=== PATIENT | female | born 1955 | race Caucasian/White ===

== ENCOUNTER 2019-02-23 05:19 | Inpatient (IN) ==
--- NOTE | 2019-02-06 14:39 | Anesthesiology Consultation ---
Date of Service February 06, 2019 Assessment & Plan (1) Encounter for pre-operative examination: - Awaiting review preop testing (labs, EKG, CXR). - Awaiting surgeon-ordered PCP preop evaluation scheduled 02/14 (Dr. Noel). - S/P recent right upper side tooth extraction- stitches noted on exam; per patient stitches will be removed on 02/09. Denies swelling/pain in the area. S/P abx/dexamethasone x 5 days (completed 01/30). Surgeon aware. Discussed with Dr. Solomon. Patient advised to contact PAT/surgeon if any issues s/p stitches removal. - LUE limb restriction s/p left breast mastectomy. Chart Review Chart Review: Patient seen in Pre Admission Testing Teaching & Discussion Pre-Anesthesia Teaching/Discussion Notes: Instructed NPO after midnight before surgery,except medications with 15 cc of water. Medication instructions provided according to the PAT guidelines. History Surgery Operation Date: 02/23/19 09:55 Proposed Procedures p Right Total Knee Arthroplasty - Vicente Griffiths Height/Weight Height: 5 ft 6 in Weight: 86.8 kg Allergies Allergy/AdvReac Type Severity Reaction Status Date / Time narcotics AdvReac nausea Uncoded 02/06/19 14:42 Medications Home Medications Medication Instructions Recorded Confirmed Last Taken celecoxib [Celebrex] 200 mg PO DAILY 01/27/19 01/27/19 Unknown cholecalciferol (vitamin D3) 400 unit PO BID 01/27/19 01/27/19 Unknown [Vitamin D3] cranberry 500 mg PO DAILY 01/27/19 01/27/19 Unknown dexamethasone 0.75 mg PO UD 01/27/19 01/27/19 Unknown lactobacillus combination no.4 3,000 mmu cells PO DAILY 01/27/19 01/27/19 Unknown [Probiotic] lysine [L-Lysine] 500 mg PO DAILY PRN 01/27/19 01/27/19 Unknown multivitamin 1 tab PO DAILY 01/27/19 01/27/19 Unknown omeprazole magnesium [Prilosec OTC] 20 mg PO DAILY PRN 01/27/19 01/27/19 Unknown Past Medical History Medical History Cancer left breast s/p left mastectomy (no chemo/XRT)- LUE limb restriction GERD (gastroesophageal reflux disease) controlled Obesity Osteoarthritis Spinal stenosis Temporomandibular joint disorder occasional clicking/no locking Exercise / Class Metabolic Activity II 4-5 Yardwork/Stairs/Walk up hill Past Family History Family History Father Family hx of colon cancer Past Surgical History Surgical History History of carpal tunnel release RT/LEFT History of cholecystectomy History of colonoscopy History of ear surgery LEFT X 2 History of hysterectomy History of laparoscopy History of left mastectomy WITH RECONSTRUCTION History of myringotomy History of tonsillectomy History of tooth extraction Status post transverse rectus abdominis muscle flap breast reconstruction LEFT BREAST Past Anesthesia History No Hx of Anesthesia Complications and No Family Hx of Anesthesia Complications History of PONV No Hx of PONV and No Hx of Motion Sickness Social History Smoking Status: Former smoker tobacco type: cigarettes Do You Dip or Chew Tobacco: No Smoking End Date: Quit 1985 Hx Alcohol Use: Yes Alcohol type: beer and wine alcohol intake frequency: holidays/special occasions only Hx Substance Use: No substance use type: does not use Review of Systems Reflux controlled. Patient denies chest pain, shortness of breath, dyspnea on exertion, cough, wheezing, palpitations. Physical Exam Vital Signs VITALS BP 112/78 P 80 TEMP 98.1 SP02 96%RA RESP 16 PHYSICAL Full neck and c-spine range of motion. Full TMJ range of motion. TMD 3 finger breaths Mallampati Score 3 Dentition: missing molars, upper front dental implants (recent right upper side tooth extraction- stitches noted on exam; per patient stitches will be removed on 02/09. Denies swelling/pain in the area. S/P abx/dexamethasone; surgeon aware) Lungs: clear throughout to auscultation Cardiac: regular rate and rhythm, no murmurs noted Spine: normal Carotid arteries: negative bruit Extremities: no edema
--- NOTE | 2019-02-06 14:51 | PAT Medication Instructions ---
Medication Instructions Date of Service February 06, 2019 Home Medications celecoxib [Celebrex] 200 mg PO DAILY cholecalciferol (vitamin D3) [Vitamin D3] 400 unit PO BID cranberry 500 mg PO DAILY etodolac 400 mg PO Q6H PRN lactobacillus combination no.4 [Probiotic] 3,000 mmu cells PO DAILY lysine [L-Lysine] 500 mg PO DAILY PRN multivitamin 1 tab PO DAILY omeprazole magnesium [Prilosec OTC] 20 mg PO DAILY PRN ASK your surgeon for instructions celecoxib [Celebrex] 200 mg PO DAILY STOP taking 2 weeks before surgery (or as soon as possible if surgery is within 2 weeks) cranberry 500 mg PO DAILY lysine [L-Lysine] 500 mg PO DAILY PRN DO NOT take the morning of surgery cholecalciferol (vitamin D3) [Vitamin D3] 400 unit PO BID lactobacillus combination no.4 [Probiotic] 3,000 mmu cells PO DAILY multivitamin 1 tab PO DAILY Take morning of surgery With a small sip of water, OTHERWISE NOTHING TO EAT OR DRINK AFTER MIDNIGHT: omeprazole magnesium [Prilosec OTC] 20 mg PO DAILY PRN (if needed) Take evening before surgery cholecalciferol (vitamin D3) [Vitamin D3] 400 unit PO BID omeprazole magnesium [Prilosec OTC] 20 mg PO DAILY PRN (if needed) Other Notes If you have any questions please call us at [phone] or [phone] or [phone] or [phone]
--- NOTE | 2019-02-06 15:37 | XRay Report ---
TWO VIEW CHEST CLINICAL HISTORY: Preoperative examination. FINDINGS: PA and lateral chest radiographs are obtained. No prior studies are available for compariso n at the time of dictation. The cardiomediastinal silhouette is unremarkable. There is mild elevati on of the right hemidiaphragm and bibasilar atelectasis. The lungs and pleural spaces are otherwise c lear. There is no pneumothorax. The skeletal structures are osteopenic. The bony thorax appears intac t. Surgical clips are noted in the left axilla and the left breast. There are also surgical clips in the upper abdomen. IMPRESSION: No active disease in the chest. Electronically signed by: Anuj Daniel M.D. 02/06/2019 3:36 PM
[2019-02-06 15:41] LABS: Basophils # (auto) 0.05 K/uL (0-0.2); Basophils % (auto) 0.7 %; Eosinophils # (auto) 0.16 K/uL (0-0.5); Eosinophils % (auto) 2.1 %; Hematocrit (blood only) 38.2 % (37-47); Hemoglobin 13.1 g/dL (12.0-16.0); Immature Granulocytes # (auto) 0.03 K/uL (0.00-0.02); Immature Granulocytes % (auto) 0.4 %; Lymphocytes % (auto) 44.2 %; Mean Corpuscular Hemoglobin 31.6 pg (25-34); Mean Corpuscular Hgb Conc 34.3 g/dL (32-36); Mean Corpuscular Volume 92.3 fL (80-100); Mean Platelet Volume 9.4 fL (7.4-10.4); Neutrophils # (auto) 3.32 K/uL (1.4-6.5); Neutrophils % (auto) 44.6 %; Platelet Count 289 K/uL (130-400); RDW Coefficient of Variation 12.2 % (11.5-14.5); RDW Standard Deviation 41.2 fL (36.4-46.3); Red Blood Count 4.14 M/uL (4.2-5.4); White Blood Count 7.46 K/uL (4.8-10.8)
[2019-02-06 15:53] LABS: Appearance Urine Clear (Clear); Bacteria Urine Automated Negative (Negative); Bilirubin Urine Negative (Negative); Blood Urine Negative (Negative); Color Urine Yellow; Epithelial Cell Urine Auto >30 /lpf (0-5); Glucose Urine UA Negative (Negative); Ketones Urine Trace (Negative); Leukocyte Esterase Urine 1+ (Negative); Nitrite Urine Negative (Negative); Protein Urine Negative (Negative); RBC Urine Automated 0-4 /hpf (0-4); Specific Gravity Urine 1.022 (1.000-1.030); Urobilinogen Urine Negative (Negative)
[2019-02-06 15:53] LABS: Albumin Level 3.6 gm/dl (3.4-5.0); BUN Creatinine Ratio 14.8 (10-20); Calcium 8.9 mg/dl (8.5-10.1); Creatinine Clr Calc Pharmacy 64.2 ml/min; Est GFR (Non-African American) 61.3; Potassium 4.4 mmol/L (3.5-5.1)
[2019-02-06 15:56] LABS: Albumin Globulin Ratio 1.1 (0.9-2); Bilirubin,Total 0.4 mg/dl (0.2-1); Globulin 3.2 gm/dl (2.5-4.0); Total Protein 6.8 gm/dl (6.4-8.2)
[2019-02-06 16:04] LABS: Partial Thromboplastin Ratio 0.8; Partial Thromboplastin Time 22.8 Seconds (21.0-31.0)
--- NOTE | 2019-02-21 13:31 | History & Physical Report ---
Date of Service February 21, 2019 Assessment & Plan (1) Degenerative joint disease of right knee: admit and undergo Right TKA History of Present Illness Chief Complaint: Right knee pain Primary Care Provider: Maykel hernandez female with complaints of right knee pain for years. has failed nsaids, injections andpt and now ready for TKA Allergies Allergy/AdvReac Type Severity Reaction Status Date / Time narcotics AdvReac nausea Uncoded 02/06/19 14:42 Home Medications Home Medications Medication Instructions Recorded Confirmed Type celecoxib [Celebrex] 200 mg PO DAILY 01/27/19 01/27/19 History cholecalciferol (vitamin D3) 400 unit PO BID 01/27/19 01/27/19 History [Vitamin D3] cranberry 500 mg PO DAILY 01/27/19 01/27/19 History dexamethasone 0.75 mg PO UD 01/27/19 01/27/19 History lactobacillus combination no.4 3,000 mmu cells PO DAILY 01/27/19 01/27/19 History [Probiotic] lysine [L-Lysine] 500 mg PO DAILY PRN 01/27/19 01/27/19 History multivitamin 1 tab PO DAILY 01/27/19 01/27/19 History omeprazole magnesium [Prilosec OTC] 20 mg PO DAILY PRN 01/27/19 01/27/19 History Past Med/Surg History Medical History Cancer left breast s/p left mastectomy (no chemo/XRT)- LUE limb restriction GERD (gastroesophageal reflux disease) controlled Obesity Osteoarthritis Spinal stenosis Temporomandibular joint disorder occasional clicking/no locking Surgical History History of carpal tunnel release RT/LEFT History of cholecystectomy History of colonoscopy History of ear surgery LEFT X 2 History of hysterectomy History of laparoscopy History of left mastectomy WITH RECONSTRUCTION History of myringotomy History of tonsillectomy History of tooth extraction Status post transverse rectus abdominis muscle flap breast reconstruction LEFT BREAST Family History Father Family hx of colon cancer Social History Preferred Language: Uzbek Communication Ability: Effective Electronics Commodity Manager Required: No Beliefs That Will Affect Care: None Current Living Situation: Spouse Other Information That Helps Us Care for You: No Feels Safe at Home: Yes Safety Concerns: Feels Safe At This Time Smoking Status: Former smoker Tobacco Type: cigarettes ; Do You Dip or Chew Tobacco: No ; Smoking End Date: Quit 1985 ; Second Hand Exposure: No ; Tobacco Cessation Education Requested by Patient: No Hx Alcohol Use: Yes Alcohol type: beer and wine Hx Substance Use: No Review of Systems All systems reviewed & are unremarkable except as noted in HPI & below Physical Exam Constitutional: WD/WN, vitals as above Neck: trachea midline, no thyromegaly Respiratory: normal respiratory effort, lungs clear to auscultation Cardiovascular: RRR, no murmur, no edema Gastrointestinal (Abdomen): normal bowel sounds, soft, nontender, no hepatosplenomegaly Musculoskeletal: Knee: + deformity, + limited ROM of knee and + knee ROM with crepitation
[2019-02-23] MEDS ORDERED: LR 60ML/HR IV SCH (06:00)
[2019-02-23] MEDS ORDERED: ROPIVACAINE 0.5% HCL/PF 150 MG, BUPIVACAINE 0.5% MPF 30 ML, EPINEPHrine 30MG/30ML (OR U... INSTIL SCH (06:00)
[2019-02-23] MEDS ORDERED: FAMOTIDINE 20 MG TAB PO SCH (06:00)
[2019-02-23] MEDS ORDERED: CeleBREX 200 MG CAP PO SCH (06:00)
[2019-02-23] MEDS ORDERED: TRANEXAMIC ACID 1,000 MG **IV Pre-op IV SCH (06:00)
[2019-02-23] MEDS ORDERED: METOCLOPRAMIDE HCL 10 MG TABLET PO SCH (06:00)
[2019-02-23] MEDS ORDERED: dexAMETHasone 4 MG TAB PO SCH (06:00)
[2019-02-23] MEDS ORDERED: ACETAMINOPHEN 500 MG TAB PO SCH (06:00)
[2019-02-23] MEDS ORDERED: CEFAZOLIN 2000MG 2,000 MG/15 ML SYR IV SCH (06:00)
[2019-02-23] MEDS ORDERED: LR 15ML/HR IV SCH (06:00)
[2019-02-23] MEDS ORDERED: LR 500ML BOLUS, THEN 15ML/HR IV SCH (06:00)
[2019-02-23] MEDS ORDERED: BUPIVACAINE 0.5 % 5 MG/1 ML PF 10ML VIAL ONE (06:24)
[2019-02-23] MEDS ORDERED: TRANEXAMIC ACID 1,000 MG **IV Intra-op IV SCH (06:30)
[2019-02-23] MEDS ORDERED: MIDAZOLAM HCL 1 MG/ML 2ML VIAL ONE ×2 (06:38→06:39)
[2019-02-23] MEDS ORDERED: BACITRACIN INJ 50,000 UNIT VIAL ONE (06:40)
[2019-02-23] MEDS ORDERED: ORTHO JOINT ANESTHETIC ONE (06:40)
--- NOTE | 2019-02-23 06:41 | History & Physical Bridge Note ---
Date of Service February 23, 2019 History & Physical Bridge Note I have examined the patient, reviewed the History & Physical and in the interval since the performance of the History & Physical I have noted the following changes of clinical significance: no changes noted
[2019-02-23] MEDS ORDERED: ePHEDrine sulfate 50 MG/ML AMP IV PRN (07:08)
[2019-02-23] MEDS ORDERED: fentaNYL citrate 100 MCG/2 ML VIAL IV PRN (07:08)
[2019-02-23] MEDS ORDERED: ONDANSETRON INJ 2 MG/ML 2 ML VIAL IV PRN ×2 (07:08→09:27)
[2019-02-23] MEDS ORDERED: ATROPINE SULFATE 0.1 MG/ML 10ML SYR IV PRN (07:08)
[2019-02-23] MEDS ORDERED: LIDOCAINE HCL 2% 2 ML VIAL/AMP(20MG/ML) INFIL ONE (07:29)
[2019-02-23] MEDS ORDERED: ONDANSETRON INJ 2 MG/ML 2 ML VIAL ONE (07:29)
[2019-02-23] MEDS ORDERED: PROPOFOL IV EMULSION 10 MG/ML 20 ML VIAL IV ONE (07:29)
[2019-02-23] MEDS ORDERED: ePHEDrine sulfate 50 MG/ML SYR ONE (08:00)
--- NOTE | 2019-02-23 08:00 | Post Operative Brief Note ---
Immediate Post Op Note v1 Date of Surgery February 23, 2019 Pre & Post Diagnosis Operation Date: 02/23/19 07:00 Pre-Op Diagnosis: Right Knee Osteoarthritis Post-Op Diagnosis: Right Knee Osteoarthritis I identified the patient and participated in the time-out.: Yes Procedure Operation Date: 02/23/19 07:00 Actual Procedures p Right Total Knee Arthroplasty(Right) - Vicente Griffiths Surgeon Vicente Griffiths Business Functional Analyst Brooks foreman pac Estimated Blood Loss 10 Findings Consistent with Post-Op Diagnosis Drains Hemovac Drain (10 slovak, dual lumen)
--- NOTE | 2019-02-23 08:02 | Operative Report ---
Post Operative Report Pre & Post Diagnosis Operation Date: 02/23/19 07:00 Pre-Op Diagnosis: Right Knee Osteoarthritis Post-Op Diagnosis: Right Knee Osteoarthritis I identified the patient and participated in the time-out.: Yes Procedure Operation Date: 02/23/19 07:00 Actual Procedures p Right Total Knee Arthroplasty(Right) - Vicente Griffiths Surgeon Vicente Griffiths Research Contracts Supervisor Brooks foreman pac Estimated Blood Loss 10 Findings Consistent with Post-Op Diagnosis Specimens none Complications none Disposition Disposition: Recovery Room Description of Procedure IMPLANTS USED: [employer]rera [employer]hew journey 2 knee size 5 cemented femoral component, size 4 tibial component, a size 13 PS insert and size 32 all polyethylene patella INDICATIONS: Mrs. Cook is a pleasant /female) who has unfortunately failed all forms of conservative measures. Therefore, they have decided to undergo elective surgical intervention. All risks and benefits of the surgery were discussed with the patient and the family in entirety. PROCEDURE: The patient was brought to the operating room and properly identified by myself, anesthesia, and staff. Patient was given a spinal anesthesia and placed on the operating table in the supine position. Tourniquets were applied to the right upper thigh. The leg was then prepped and draped in usual sterile fashion. We made a standard midline approach over the patella and dissected down through the subcutaneous tissue to identify the capsule and performed a medial capsulotomy with the patella everted and the knee flexed.The patient matched implant was then put onto the femur. The femur measured to be a size #5. This was then put into place. We made the appropriate cuts and then placed a retractor behind the proximal tibia to retract anteriorly. We then placed the patient matched knee implant on the tibia. It measured to be a size #4. A size #4 guide was then put in place. We used the tibial punch then put the trial components into place. We had very good range of motion, excellent stability, and excellent patella tracking. We removed the trial components and irrigated the wound. We impacted the components in place using antibiotic cement. All excess cement was removed. We then irrigated the wound once more. We closed the capsule with 0 PDS suture, deep dermis and 2-0 Vicryl, and finally the skin with yolanda. A sterile dressing was applied. The patient was taken to the recovery room in stable condition. Due to the complex nature of the procedure, the entire surgery was performed with the operational assistance of Brooks Nunez PA-C. The claims assistant was under direct supervision, was involved in the actual performance of all aspects of the surgical procedure including hemostasis, tissue retraction and incision, instrument management, patient positioning, and wound closure. I attest to the content of the Intraoperative Record and any orders documented therein. Any exceptions are noted below.
--- NOTE | 2019-02-23 09:07 | Anesthesiology Progress Note ---
Date of Service February 23, 2019 Anesthesia Post Procedure Vital Signs Vital Signs: Temp Pulse Pulse Resp BP Pulse Ox 02/23/19 09:05 74 18 106/60 98 02/23/19 08:55 97.9 F 68 18 101/66 96 02/23/19 08:45 71 18 105/66 98 02/23/19 08:35 71 18 93/59 L 99 02/23/19 08:27 98.1 F 76 18 102/65 100 02/23/19 05:46 97.5 F L 70 20 132/82 96 Transfer of Care Handoff Completed per policy Notes Mental Status: alert / awake / arousable and participated in evaluation Patient Amnestic to Procedure: Yes Nausea / Vomiting: adequately controlled Pain: adequately controlled Airway Patency, RR, SpO2: stable & adequate BP & HR: stable & adequate Hydration State: stable & adequate Neuraxial Anesthesia: was administered and sensory block is resolving Anesthetic Complications: no major complications apparent and Pt Satisfied with anesthetic care
[2019-02-23] MEDS ORDERED: ALUMINUM/MAGNESIUM SUSP 30 ML UDC PO PRN (09:27)
[2019-02-23] MEDS ORDERED: DiphenhydrAMINE HCL 50 MG/ML VIAL IV PRN (09:27)
[2019-02-23] MEDS ORDERED: MAGNESIUM HYDROXIDE SUSP 30 ML UDC PO PRN (09:27)
[2019-02-23] MEDS ORDERED: bisacodyL 10 MG SUPP PR PRN (09:27)
[2019-02-23] MEDS ORDERED: SODIUM CHLORIDE 0.9% 1000ML 1,000 ML IV SCH (09:27)
[2019-02-23] MEDS ORDERED: METOCLOPRAMIDE HCL INJ 5 MG/ML 2 ML VIAL IV PRN (09:27)
[2019-02-23] MEDS ORDERED: OXYCODONE HCL IR 5 MG TAB (IMMEDIATE RELEASE) PO PRN (09:27)
[2019-02-23] MEDS ORDERED: NALOXONE HCL 0.4 MG/1 ML VIAL/CARP IV PRN (09:27)
[2019-02-23] MEDS: ASPIRIN 81 MG ECTAB PO SCH ×2 (11:57→20:32)
[2019-02-23] MEDS: DOCUSATE SODIUM 100 MG CAP PO SCH ×2 (11:57→20:32)
[2019-02-23] MEDS ORDERED: INFLUENZA VACCINE HIGH DOSE 65+ 0.5 ML SYR IM ONE (12:00)
[2019-02-23] MEDS ORDERED: INFLUENZA ADMINISTRATION CHARGE ONE (12:00)
[2019-02-23] MEDS ORDERED: TRANEXAMIC ACID 1,000 MG in 0.9 % SODIUM CHLORIDE 100 ML IV SCH (13:55)
[2019-02-23] MEDS: CEFAZOLIN 2000MG 2,000 MG/15 ML SYR IV SCH ×2 (14:38→22:37)
[2019-02-23] MEDS: ACETAMINOPHEN 500 MG TAB PO SCH ×2 (14:39→22:37)
[2019-02-23] MEDS ORDERED: SENNA 8.6 MG TAB PO SCH (21:00)
[2019-02-24 05:36] LABS: Hematocrit (blood only) 32.7 % (37-47); Hemoglobin 11.6 g/dL (12.0-16.0); Mean Corpuscular Hemoglobin 32.2 pg (25-34); Mean Corpuscular Hgb Conc 35.5 g/dL (32-36); Mean Corpuscular Volume 90.8 fL (80-100); Mean Platelet Volume 9.2 fL (7.4-10.4); Platelet Count 280 K/uL (130-400); RDW Coefficient of Variation 12.3 % (11.5-14.5); RDW Standard Deviation 40.8 fL (36.4-46.3); White Blood Count 11.16 K/uL (4.8-10.8)
[2019-02-24] MEDS: ACETAMINOPHEN 500 MG TAB PO SCH ×2 (05:43→13:31)
[2019-02-24 06:06] LABS: BUN Creatinine Ratio 22.3 (10-20); Calcium 8.7 mg/dl (8.5-10.1); Est GFR (African American) 82.2; Est GFR (Non-African American) 70.9; Potassium 3.9 mmol/L (3.5-5.1)
[2019-02-24] MEDS: ASPIRIN 81 MG ECTAB PO SCH (07:44)
[2019-02-24] MEDS: DOCUSATE SODIUM 100 MG CAP PO SCH (07:44)
--- NOTE | 2019-02-24 07:46 | Anesthesiology Progress Note ---
Date of Service February 24, 2019 Anesthesia Post Procedure Vital Signs Vital Signs: Temp Pulse Pulse Pulse Resp BP Pulse Ox 02/24/19 07:00 36.6 C 64 16 109/71 98 02/24/19 03:10 36.7 C 72 16 104/59 L 96 02/23/19 23:45 36.8 C 69 16 128/74 97 02/23/19 19:30 36.7 C 74 16 118/74 98 02/23/19 15:10 36.4 C L 73 18 112/77 98 02/23/19 12:22 36.5 C 76 16 113/75 96 02/23/19 11:20 36.7 C 81 16 107/69 99 02/23/19 10:19 36.6 C 73 16 113/75 97 02/23/19 10:02 36.5 C 70 16 102/66 95 02/23/19 09:20 36.5 C 71 16 108/69 97 02/23/19 09:05 74 18 106/60 98 02/23/19 08:55 36.6 C 68 18 101/66 96 02/23/19 08:45 71 18 105/66 98 02/23/19 08:35 71 18 93/59 L 99 02/23/19 08:27 36.7 C 76 18 102/65 100 Notes Mental Status: alert / awake / arousable and participated in evaluation Patient Amnestic to Procedure: Yes Nausea / Vomiting: adequately controlled Pain: adequately controlled Airway Patency, RR, SpO2: stable & adequate BP & HR: stable & adequate Hydration State: stable & adequate Neuraxial Anesthesia: was administered and sensory block resolved Anesthetic Complications: no major complications apparent and Pt Satisfied with anesthetic care
[2019-02-24] MEDS ORDERED: dexAMETHasone 10 MG in SYRINGE 0 ML IV SCH (08:00)
--- NOTE | 2019-02-24 08:38 | Orthopedic Progress Note ---
Date of Service February 24, 2019 Assessment & Plan (1) Degenerative joint disease of right knee: Postop day 1 status post right total knee arthroplasty. Begin PT and OT protocols. Weightbearing as tolerated. DVT prophylaxis with aspirin twice daily and SCDs. Pain management with acetaminophen and oxycodone. DC planning-planning for home health services upon discharge. Subjective Patient sitting up in bed awake and alert. She has no complaints today. Pain is controlled. Denies shortness of breath, chest pain, lightheadedness. Physical Exam Physical Exam: Dressings are clean, dry, intact. Calves are soft nontender. Neurovascular is intact. Toes are mobile. Results & Data Vital Signs (Past 12 Hours) Vital Signs Temp Pulse Pulse Resp BP Pulse Ox 02/24/19 07:00 36.6 C 64 16 109/71 98 02/24/19 03:10 36.7 C 72 16 104/59 L 96 02/23/19 23:45 36.8 C 69 16 128/74 97 Laboratory Results Laboratory Results WBC 11.16 K/uL (4.8-10.8) H 02/24/19 04:50 RBC 3.60 M/uL (4.2-5.4) L 02/24/19 04:50 Hgb 11.6 g/dL (12.0-16.0) L 02/24/19 04:50 Hct 32.7 % (37-47) L 02/24/19 04:50 MCV 90.8 fL (80-100) 02/24/19 04:50 MCH 32.2 pg (25-34) 02/24/19 04:50 MCHC 35.5 g/dL (32-36) 02/24/19 04:50 RDW Std Deviation 40.8 fL (36.4-46.3) 02/24/19 04:50 RDW Coeff of Gianni 12.3 % (11.5-14.5) 02/24/19 04:50 Plt Count 280 K/uL (130-400) 02/24/19 04:50 MPV 9.2 fL (7.4-10.4) 02/24/19 04:50 Immature Gran % (Auto) 0.4 % 02/06/19 14:52 Neut % (Auto) 44.6 % 02/06/19 14:52 Lymph % (Auto) 44.2 % 02/06/19 14:52 [place] % (Auto) 8.0 % 02/06/19 14:52 Eos % (Auto) 2.1 % 02/06/19 14:52 Baso % (Auto) 0.7 % 02/06/19 14:52 Immature Gran # (Auto) 0.03 K/uL (0.00-0.02) H 02/06/19 14:52 Neut # (Auto) 3.32 K/uL (1.4-6.5) 02/06/19 14:52 Lymph # (Auto) 3.30 K/uL (1.2-3.4) 02/06/19 14:52 [place] # (Auto) 0.60 K/uL (0.11-0.59) H 02/06/19 14:52 Eos # (Auto) 0.16 K/uL (0-0.5) 02/06/19 14:52 Baso # (Auto) 0.05 K/uL (0-0.2) 02/06/19 14:52 PT 10.0 Seconds (9.0-12.0) 02/06/19 14:52 INR 1.0 (0.9-1.1) 02/06/19 14:52 APTT 22.8 Seconds (21.0-31.0) 02/06/19 14:52 PTT Ratio 0.8 02/06/19 14:52 Sodium 142 mmol/L (136-145) 02/24/19 04:50 Potassium 3.9 mmol/L (3.5-5.1) 02/24/19 04:50 Chloride 110 mmol/L (98-107) H 02/24/19 04:50 Carbon Dioxide 23 mmol/L (21-32) 02/24/19 04:50 Anion Gap 8.0 (3-11) 02/24/19 04:50 BUN 19 mg/dl (7-18) H 02/24/19 04:50 Creatinine 0.86 mg/dl (0.6-1.2) 02/24/19 04:50 Est Cr Clr Drug Dosing 72.0 ml/min 02/24/19 04:50 Est GFR ( Amer) 82.2 02/24/19 04:50 Est GFR (Non-Af Amer) 70.9 02/24/19 04:50 BUN/Creatinine Ratio 22.3 (10-20) H 02/24/19 04:50 Glucose 122 mg/dl (70-99) H 02/24/19 04:50 Calcium 8.7 mg/dl (8.5-10.1) 02/24/19 04:50 Total Bilirubin 0.4 mg/dl (0.2-1) 02/06/19 14:58 AST 26 U/L (15-37) 02/06/19 14:58 ALT 47 U/L (12-78) 02/06/19 14:58 Alkaline Phosphatase 69 U/L (45-117) 02/06/19 14:58 Total Protein 6.8 gm/dl (6.4-8.2) 02/06/19 14:58 Albumin 3.6 gm/dl (3.4-5.0) 02/06/19 14:58 Globulin 3.2 gm/dl (2.5-4.0) 02/06/19 14:58 Albumin/Globulin Ratio 1.1 (0.9-2) 02/06/19 14:58 Urine Color Yellow 02/06/19 Unknown Urine Appearance Clear (Clear) 02/06/19 Unknown Urine pH 5.0 (4.5-7.5) 02/06/19 Unknown Ur Specific [place] 1.022 (1.000-1.030) 02/06/19 Unknown Urine Protein Negative (Negative) 02/06/19 Unknown Urine Glucose (UA) Negative (Negative) 02/06/19 Unknown Urine Ketones Trace (Negative) H 02/06/19 Unknown Urine Blood Negative (Negative) 02/06/19 Unknown Urine Nitrite Negative (Negative) 02/06/19 Unknown Urine Bilirubin Negative (Negative) 02/06/19 Unknown Urine Urobilinogen Negative (Negative) 02/06/19 Unknown Ur Leukocyte Esterase 1+ (Negative) H 02/06/19 Unknown Urine WBC (Auto) 5-10 /hpf (0-5) H 02/06/19 Unknown Urine RBC (Auto) 0-4 /hpf (0-4) 02/06/19 Unknown U Hyaline Cast (Auto) 1-5 /lpf (0-5) 02/06/19 Unknown U Epithel Cells (Auto) >30 /lpf (0-5) H 02/06/19 Unknown Urine Bacteria (Auto) Negative (Negative) 02/06/19 Unknown Nasal Screen MRSA (PCR) Negative (Negative) 02/06/19 Unknown Blood Type A Positive 02/06/19 14:52 Antibody Screen NEGATIVE 02/06/19 14:52
[2019-02-24 11:53] VITALS: BP 117/75; PULSE 73; TEMP 98.1; O2SAT 97
--- NOTE | 2019-02-25 19:24 | Discharge Summary ---
DISCHARGE DIAGNOSIS: Degenerative joint disease, right knee. SECONDARY DIAGNOSES: History of breast cancer in the past, GERD, obesity, osteoarthritis, spinal stenosis, TMJ disorder. CONSULTS: None. COMPLICATIONS: None. PROCEDURES: Right total knee arthroplasty performed by Dr. Griffiths on 02/23/2019. BRIEF HISTORY: As dictated in the history and physical. HOSPITAL SUMMARY: The patient was admitted on the above-noted date and had the above-noted surgery performed, which she tolerated well. On the first postoperative day, she was sitting up in bed, awake and alert. She had no complaints. Pain was controlled. Denied shortness of breath, chest pain or lightheadedness. Dressings clean, dry and intact. Calves were soft, nontender, neurovascularly intact. Toes were mobile. Vital signs were stable. She was afebrile. Hemoglobin was 11.6 and she was started on physical therapy protocol and continued on DVT prophylaxis and pain management. She continued to progress well with her PT and OT that day and remained with good pain control and was discharged to home with home health services on 02/24/2019. For further review, please see chart. LABORATORY AND X-RAY DATA: As per chart. DISCHARGE INSTRUCTIONS: The patient was discharged home in satisfactory condition on 02/24/2019. DIET: Regular. ACTIVITY: Weightbearing as tolerated on the right lower extremity with walker. Follow Dr. Griffiths's TK instruction sheets that will be provided prior to discharge. Follow up with Dr. Griffiths in 2 weeks. The patient to call for appointment if one has not been made for you. DISCHARGE MEDICATIONS: Acetaminophen 1000 mg p.o. q. 8 hours, aspirin 81 mg p.o. b.i.d., cefadroxil 500 mg p.o. b.i.d., oxycodone 5 mg p.o. q. 4 hours p.r.n. and sennosides 17.2 mg p.o. at bedtime. Resume home meds as listed.
== END 2019-02-24 14:02 | disposition home health service (06) | DRG 470 ==
LOC: ASU 05:19 → 3E 08:20